=== PATIENT | male | born 1985 | race Caucasian/White ===

== ENCOUNTER 2024-02-08 16:07 | Emergency (ER) | payer SELFPAY ==
[2024-02-08 16:09] VITALS: BP 151/102
--- NOTE | 2024-02-08 19:27 | ED.SKININJ ---
HPI-Injury
General
Chief Complaint: Bite
Time Seen by Provider: 02/08/24 18:52
History of Present Illness-Injury
Initial Injury comments:
38-year-old male presents to the emergency department for evaluation of a laceration to the right lower lip after being bitten by his dog. Dog is up-to-date on vaccinations and the patient is up-to-date on tetanus.
Review of Systems
Review of Systems
Allergies reviewed?: Yes
All Other Systems: ROS reviewed and negative except as documented in HPI and ROS
Phy Exam
Physical Exam
Physical Exam:
GEN: Well appearing, NAD, WDWN
HEENT: Oral mucosa moist, no scleral icterus. 1.5 cm V-shaped laceration to the right lower lip with complete violation of the vermilion border
Cardiac: Regular rate
Lung: No respiratory distress, no tachypnea
MSK: No gross deformity or injuries
Skin: Good color, no pallor or jaundice, no rashes
Neuro: AO x3, moves all extremities freely
Psych: Calm, cooperative
Course
Orders/Labs/Results
Orders:
Orders
02/08/24 19:28
Amoxicillin 875 mg/Clav 125 mg [Augmentin 875 mg/125 mg] 1 tablet PO NOW STA
Vital Signs
Initial and Last Documented VS:
Initial Vital Signs
Temp Pulse Resp BP Pulse Ox
97.7 F 75 16 151/102 98
02/08/24 16:09 02/08/24 16:09 02/08/24 16:09 02/08/24 16:09 02/08/24 16:09
Last Documented Vital Signs
Temp Pulse Resp BP Pulse Ox
97.7 F 75 16 151/102 98
02/08/24 16:09 02/08/24 16:09 02/08/24 16:09 02/08/24 16:09 02/08/24 16:09
Procedures
Laceration Closure
Right Lower Lip:
Status of Wound: clean
Size of Wound in cm: 1.5
Description of Wound Edges: sharp
Preparation: cleaned with saline
Anesthesia: 1% Lidocaine
Wound exploration: explored to base- no FB
Type of Closure: single layer closure
Skin Closure Material: 6-0 nylon
Number of sutures: 6
MDM/Problems Addressed
MDM/Problems Addressed:
I did discuss with the patient the risk of infection with wound closure however given the significant cosmetic effect of this wound there is no choice but to repair this wound, will start the patient on Augmentin
*Critical Care Note
Total Time (30-74mins, 75-104mins- exclusive of procedures): Not Applicable
ED Attending Note
-
Portions of this chart may have been created with voice recognition software.� Occasional wrong word or��sound alike� substitutions may have occurred due to the inherent limitations of voice recognition software.
Discharge Plan
Departure
Patient Disposition: Home (Routine Discharge)
Date of Disposition: 02/08/24
Time of Disposition: 19:28
Patient with high blood pressure during this ER visit?: No
Discharge Problem:
Dog bite of vermilion border of lower lip
Instructions: Animal Bites (DC), Laceration Repair With Stitches (DC)
Prescriptions:
New
amoxicillin-pot clavulanate 875-125 mg tablet
1 tab PO BID Qty: 6 0RF
Activity Restrictions/Additional Instructions:
Keep wound dry for 24 hours then gently wash each day
Keep covered as long as it bleeds
Ice often to reduce swelling
Follow up with your primary doctor or urgent care in 1 week for suture removal
Interventions
Interventions:
*Risk Screen - Suicide Last Done: 02/08/24 19:45
*General Assessment Last Done: 02/08/24 19:45
*Neglect/Abuse Screening Last Done: 02/08/24 19:45
*ED COVID-19 Vaccine History Last Done: 02/08/24 18:10
*Nursing Disposition Last Done: 02/08/24 19:45
ED-Skin Assessment Last Done: 02/08/24 18:10
Discharge Date and Time
Print Language: NEPALESE
[2024-02-08] MEDS: AUGMENTIN 875 MG/125 MG 1 TABLET PO (19:42)
== END 2024-02-08 19:46 | disposition home or self-care (01) ==
LOC: EMR 16:07
PROVIDERS: EMERGENCY PHYSICIAN Emergency Medicine; FAMILY PHYSICIAN Family Medicine
DX: S01.511A Laceration without foreign body of lip, initial encounter (principal); W54.0XXA Bitten by dog, initial encounter
CPT/HCPCS: 12011; 99283